=== PATIENT | male | born 1930 | race Caucasian/White ===

== ENCOUNTER 2018-12-08 13:26 | Emergency (ER) | payer MEDICARE ==
[~2018-12-08 13:26] MED LIST: AM500 MT; AMI2 MT; ASPI-1158 MT; ASPI-1393 MT; FOLI-43 MT; FURO20TA4 MT; QUIN40TA14 MT; TAMS0.4C31 MT; WARF1TAB46 MT; WARF1TAB85 MT
== END 2018-12-08 16:52 | disposition left against medical advice (07) ==
LOC: ER 13:26
DX: Z53.21 Procedure and treatment not carried out due to patient leaving prior to being seen by health care provider (principal)

== ENCOUNTER 2021-03-14 10:15 | Emergency (ER) | payer MEDICARE ==
[~2021-03-14] VITALS: Ht 167.6 cm; Wt 64.0 kg
[~2021-03-14 10:15] MED LIST changes: -AM500 MT; +AMOX-494 MT; -ASPI-1158 MT; -ASPI-1393 MT; +ASPI-1406 MT; +ASPI-1497 MT
[2021-03-14 11:00] LABS: BASOPHILS % 0.9 % (0.0-2.0); EOSINOPHILS % 1.1 % (0.0-5.0); HEMATOCRIT. 32.9 % (42.0-52.0); HEMOGLOBIN. 10.7 g/dL (14.0-18.0); MEAN CORPUSCULAR HEMOGLOBIN 29.6 pg (28.0-32.0); MEAN PLATELET VOLUME 8.1 fl (7.4-10.4); MONOCYTES % 8.1 % (2.0-8.0); NEUTROPHILS % 78.9 % (40.0-76.0); PLATELET 305 x1000/uL (130-400); RED BLOOD CELL COUNT 3.61 mill/uL (4.7-6.1); RED CELL DISTRIBUTION WIDTH 15.4 % (11.6-14.6)
[2021-03-14 12:43] LABS: CLARITY URINE CLEAR (CLEAR); COLOR URINE YELLOW (YELLOW); KETONES URINE NEGATIVE (NEGATIVE); LEUKOCYTE ESTERASE URINE NEGATIVE (NEGATIVE); NITRITE URINE NEGATIVE (NEGATIVE); OCCULT BLOOD URINE 3+ (NEGATIVE); PROTEIN URINE NEGATIVE (NEGATIVE); SPECIFIC GRAVITY URINE 1.013 (1.005-1.030); UROBILINOGEN URINE 0.2 E.U./dL (0.2-1.0)
[2021-03-14] MEDS ORDERED: SODIUM CHLORIDE 0.9% 500 ML IV NR (12:45)
[2021-03-14 15:00] VITALS: BP 132/48
== END 2021-03-14 15:15 | disposition home or self-care (01) ==
LOC: ER 10:57
DX: T83.018A Breakdown (mechanical) of other urinary catheter, initial encounter (principal); Y83.8 Other surgical procedures as the cause of abnormal reaction of the patient, or of later complication, without mention of misadventure at the time of the procedure; Y92.9 Unspecified place or not applicable; N28.9 Disorder of kidney and ureter, unspecified; R31.9 Hematuria, unspecified; D64.9 Anemia, unspecified; N40.0 Benign prostatic hyperplasia without lower urinary tract symptoms; I10 Essential (primary) hypertension; Z79.01 Long term (current) use of anticoagulants; Z79.82 Long term (current) use of aspirin; Z92.29 Personal history of other drug therapy
CPT/HCPCS: 36415; 51702; 80048; 81003; 85025; 99284; A4315

== ENCOUNTER 2021-03-16 07:51 | Inpatient (IN) | payer MEDICARE ==
[~2021-03-16] VITALS: Ht 162.6 cm; Wt 65.3 kg
[2021-03-16 09:48] LABS: CLARITY URINE CLOUDY (CLEAR); COLOR URINE BLOODY (YELLOW); KETONES URINE NEGATIVE (NEGATIVE); LEUKOCYTE ESTERASE URINE TRACE (NEGATIVE); NITRITE URINE NEGATIVE (NEGATIVE); OCCULT BLOOD URINE 3+ (NEGATIVE); PROTEIN URINE 2+ (NEGATIVE); SPECIFIC GRAVITY URINE 1.014 (1.005-1.030); UROBILINOGEN URINE 0.2 E.U./dL (0.2-1.0)
[2021-03-16] MEDS ORDERED: NITR-87 MT (10:59)
[2021-03-16 11:48] LABS: BASOPHILS % 0.7 % (0.0-2.0); EOSINOPHILS % 2.6 % (0.0-5.0); HEMATOCRIT. 29.6 % (42.0-52.0); HEMOGLOBIN. 10.1 g/dL (14.0-18.0); LYMPHOCYTES % 14.3 % (20.0-50.0); MEAN CORPUSCULAR HEMOGLOBIN 30.6 pg (28.0-32.0); MEAN PLATELET VOLUME 8.7 fl (7.4-10.4); MONOCYTES % 8.7 % (2.0-8.0); NEUTROPHILS % 73.7 % (40.0-76.0); PLATELET 300 x1000/uL (130-400); RED BLOOD CELL COUNT 3.29 mill/uL (4.7-6.1); RED CELL DISTRIBUTION WIDTH 15.5 % (11.6-14.6)
[2021-03-16 12:04] LABS: INR 1.3; PROTHROMBIN TIME 13.5 sec (9.6-11.0)
[2021-03-16] MEDS ORDERED: CEFTRIAXONE 1 G PREMIX 50 ML IV ONE (13:30)
[2021-03-16] MEDS ORDERED: ONDANSETRON HCL 4MG/2ML INJ IV PRN (18:15)
[2021-03-16] MEDS ORDERED: CLONIDINE 0.1MG TABLET PO PRN (18:15)
[2021-03-16] MEDS ORDERED: ACETAMINOPHEN 325MG TABLET PO PRN (18:15)
[2021-03-16] MEDS: TAMSULOSIN HCL 0.4MG SR CAPSULE PO SCH (18:36)
[2021-03-16] MEDS: AMIODARONE HCL 200 MG TABLET PO SCH (18:36)
[2021-03-16] MEDS: LISINOPRIL 40MG TABLET PO SCH (18:36)
[2021-03-16] MEDS: FOLIC ACID 1MG TABLET PO SCH (18:36)
[2021-03-16 20:00] VITALS: BP 172/56
[2021-03-16 20:13] VITALS: BP 155/52
[2021-03-17] VITALS: BP 129/48
[2021-03-17 04:00] VITALS: BP 130/82
[2021-03-17 06:25] LABS: BASOPHILS % 0.4 % (0.0-2.0); EOSINOPHILS % 1.8 % (0.0-5.0); HEMATOCRIT. 30.5 % (42.0-52.0); HEMOGLOBIN. 10.1 g/dL (14.0-18.0); LYMPHOCYTES % 9.3 % (20.0-50.0); MEAN CORPUSCULAR VOLUME 90.7 fL (80.0-94.0); MEAN PLATELET VOLUME 8.1 fl (7.4-10.4); MONOCYTES % 8.2 % (2.0-8.0); NEUTROPHILS % 80.3 % (40.0-76.0); PLATELET 259 x1000/uL (130-400); RED BLOOD CELL COUNT 3.36 mill/uL (4.7-6.1); RED CELL DISTRIBUTION WIDTH 15.3 % (11.6-14.6)
[2021-03-17 06:36] LABS: CHLORIDE 105 mEq/L (98-107)
[2021-03-17 08:00] VITALS: BP 143/49
[2021-03-17] MEDS ORDERED: PNEUMOCOCCAL 23-VAL P-SAC VAC 0.5 ML IM ONE (09:00)
[2021-03-17] MEDS: TAMSULOSIN HCL 0.4MG SR CAPSULE PO SCH (09:41)
[2021-03-17] MEDS: FOLIC ACID 1MG TABLET PO SCH (09:42)
[2021-03-17] MEDS: AMIODARONE HCL 200 MG TABLET PO SCH (09:43)
[2021-03-17] MEDS: LISINOPRIL 40MG TABLET PO SCH (09:43)
[2021-03-17] MEDS ORDERED: LEVO500T89 MT (11:02)
[2021-03-17 11:57] VITALS: BP 122/66
[2021-03-17] MEDS: ENOXAPARIN 80MG/0.8ML SYR SUBCUT SCH ×2 (12:13→22:10)
[2021-03-17] MEDS: CEFTRIAXONE 1,000 MG in DEXTROSE 5% WATER 50 ML IV SCH (12:15)
[2021-03-17 15:58] VITALS: BP 116/45
[2021-03-17 20:00] VITALS: BP 145/91
[2021-03-18] VITALS: BP 140/69
[2021-03-18 04:00] VITALS: BP 143/51
[2021-03-18 08:00] VITALS: BP 141/51
[2021-03-18] MEDS: AMIODARONE HCL 200 MG TABLET PO SCH (09:09)
[2021-03-18] MEDS: TAMSULOSIN HCL 0.4MG SR CAPSULE PO SCH (09:10)
[2021-03-18] MEDS: LISINOPRIL 40MG TABLET PO SCH (09:10)
[2021-03-18] MEDS: FOLIC ACID 1MG TABLET PO SCH (09:10)
[2021-03-18] MEDS: ENOXAPARIN 80MG/0.8ML SYR SUBCUT SCH (09:13)
[2021-03-18 12:00] VITALS: BP 104/51
[2021-03-18 13:10] LABS: BASOPHILS % 0.4 % (0.0-2.0); EOSINOPHILS % 1.5 % (0.0-5.0); HEMATOCRIT. 31.1 % (42.0-52.0); HEMOGLOBIN. 10.6 g/dL (14.0-18.0); LYMPHOCYTES % 11.9 % (20.0-50.0); MEAN CORPUSCULAR HEMOGLOBIN 30.5 pg (28.0-32.0); MEAN CORPUSCULAR VOLUME 89.6 fL (80.0-94.0); MEAN PLATELET VOLUME 8.3 fl (7.4-10.4); MONOCYTES % 9.1 % (2.0-8.0); NEUTROPHILS % 77.1 % (40.0-76.0); PLATELET 289 x1000/uL (130-400); RED BLOOD CELL COUNT 3.47 mill/uL (4.7-6.1); RED CELL DISTRIBUTION WIDTH 15.4 % (11.6-14.6)
[2021-03-18] MEDS: CEFTRIAXONE 1,000 MG in DEXTROSE 5% WATER 50 ML IV SCH (13:30)
[2021-03-18 14:28] VITALS: BP 141/51
[2021-03-18 15:48] LABS: INR 1.2
[2021-03-18 15:56] VITALS: BP 143/47
[2021-03-18] MEDS ORDERED: WARFARIN SODIUM 5MG TABLET PO NR (18:00)
== END 2021-03-18 17:10 | disposition home or self-care (01) | DRG 690 ==
LOC: ER 07:51 → 6EST 14:37 → EDBEDREQ 14:52 → ENRESERV 15:07 → CANBEDREQ 23:15
PROVIDERS: ADMIT Internal Medicine Pulmonary Disease; ATTEND Internal Medicine Pulmonary Disease
DX: N39.0 Urinary tract infection, site not specified (principal); N17.9 Acute kidney failure, unspecified; E87.1 Hypo-osmolality and hyponatremia; N40.1 Benign prostatic hyperplasia with lower urinary tract symptoms; N13.9 Obstructive and reflux uropathy, unspecified; I11.0 Hypertensive heart disease with heart failure; D64.9 Anemia, unspecified; I50.9 Heart failure, unspecified; R31.0 Gross hematuria; Z82.49 Family history of ischemic heart disease and other diseases of the circulatory system; Z95.2 Presence of prosthetic heart valve; R33.8 Other retention of urine
CPT/HCPCS: 36415; 74176; 80048; 81003; 85025; 87077; 87186; 90732; 99285; J0696; J1650; J7040; J7060; A4315

== ENCOUNTER 2021-03-25 10:34 | Emergency (ER) | payer MEDICARE ==
[~2021-03-25] VITALS: Ht 160 cm; Wt 73.0 kg
[~2021-03-25 10:34] MED LIST changes: -AMOX-494 MT; +LEVO500T89 MT
[2021-03-25 12:00] LABS: CLARITY URINE TURBID (CLEAR); COLOR URINE RED (YELLOW); KETONES URINE 1+ (NEGATIVE); LEUKOCYTE ESTERASE URINE 3+ (NEGATIVE); NITRITE URINE POSITIVE (NEGATIVE); OCCULT BLOOD URINE 3+ (NEGATIVE); PROTEIN URINE 3+ (NEGATIVE); SPECIFIC GRAVITY URINE 1.019 (1.005-1.030)
[2021-03-25] MEDS ORDERED: LEVOFLOXACIN 750MG PREMIX 150 ML IV ONE (12:15)
[2021-03-25 12:52] LABS: HEMATOCRIT. 24.2 % (42.0-52.0); HEMOGLOBIN. 8.3 g/dL (14.0-18.0); MEAN CORPUSCULAR HEMOGLOBIN 30.9 pg (28.0-32.0); MEAN CORPUSCULAR VOLUME 89.8 fL (80.0-94.0); MEAN PLATELET VOLUME 8.3 fl (7.4-10.4); PLATELET 224 x1000/uL (130-400); RED CELL DISTRIBUTION WIDTH 15.2 % (11.6-14.6)
[2021-03-25 13:51] LABS: PLATELET ESTIMATE NORMAL
[2021-03-25 16:04] LABS: CHLORIDE 107 mEq/L (98-107)
[2021-03-25 21:30] VITALS: BP 139/56
== END 2021-03-25 21:45 | disposition short-term general hospital (02) ==
LOC: ER 10:34
DX: N39.0 Urinary tract infection, site not specified (principal); I10 Essential (primary) hypertension; Z79.899 Other long term (current) drug therapy
CPT/HCPCS: 36415; 71045; 80053; 81003; 82962; 85025; 87077; 87086; 87186; 93005; 96365; 99285; J1956